=== PATIENT | female | born 1985 | race Caucasian/White ===

== ENCOUNTER 2018-08-03 09:32 | Inpatient (IN) | payer OTHER ==
[~2018-08-03] VITALS: Ht 157.5 cm; Wt 56.2 kg
[2018-08-03] MEDS ORDERED: PRENATAL TABLE1 EAC2 PO (10:02)
== END 2018-08-05 12:27 | disposition home or self-care (01) | DRG 775 ==
LOC: LDR 09:32 → OB/GYN 09:32
PROC: 10E0XZZ Delivery of Products of Conception, External Approach (ICD-10-PCS; principal; 2018-08-03)
PROC: 4A1HXCZ Monitoring of Products of Conception, Cardiac Rate, External Approach (ICD-10-PCS; 2018-08-03)
DX: O80 Encounter for full-term uncomplicated delivery (principal); Z3A.39 39 weeks gestation of pregnancy; Z37.0 Single live birth